=== PATIENT | female | born 1940 | race Caucasian/White ===

== ENCOUNTER → 2023-11-20 | Outpatient (CLI) | payer MEDICARE ==
[~2023-11-20] MED LIST: CELEBREX200 MG PO; DAYPRO600 M1 PO; LASIX20 MG PO; LORATADINE1 POW PO; NEXIUM40 MG PO; SINGULAIR10 MG PO; SPIRIVA18 MCG IH; SYNTHROID0.025 MG PO; VICODIN 500 MG-1 TAB PO; ZOCOR40 MG PO
[2023-11-20 16:59] LABS: BUN 13 mg/dl (9-23); CHLORIDE 106 mmol/L (98-107); POTASSIUM 4.1 mmol/L (3.4-5.1)
== END | disposition home or self-care (01) ==
LOC: LAB 16:17
PROVIDERS: ATTEND Internal Medicine
DX: N18.9 Chronic kidney disease, unspecified (principal)

== ENCOUNTER → 2024-05-31 | Outpatient (CLI) | payer MEDICARE ==
[2024-05-31 14:29] LABS: POTASSIUM 4.9 mmol/L (3.4-5.1); TOTAL PROTEIN 7.2 gm/dL (6.0-8.0)
== END | disposition home or self-care (01) ==
LOC: LAB 13:26
PROVIDERS: ATTEND Orthopaedic Surgery
DX: R53.83 Other fatigue (principal)